=== PATIENT | male | born 1955 | race Caucasian/White ===

== ENCOUNTER 2022-03-19 13:23 | Emergency (ER) | payer SELFPAY ==
[2022-03-19] MEDS ORDERED: EPINEPHrine 1 MG/10 ML SYR IV ONE (13:24)
[2022-03-19] MEDS ORDERED: Caclcium Chloride 10% INJ SYR IV ONE (13:24)
[2022-03-19] MEDS ORDERED: ATROPINE SULF 1 MG/10 ML SYR IV ONE (13:24)
[2022-03-19] MEDS ORDERED: LIDOCAINE 100 MG/5 ML SYRINGE IV ONE (13:24)
[2022-03-19] MEDS ORDERED: SODIUM CHL 0.9% 1000 ML BAG IV ONE (13:24)
[2022-03-19] MEDS ORDERED: AMIODARONE HCL 150 MG/3 ML INJ IV ONE (13:24)
[2022-03-19] MEDS ORDERED: D5W 250 ML IV ONE (13:45)
[2022-03-19] MEDS ORDERED: EPINEPHRINE/PF 1 MG/ML AMP ONE (13:45)
[2022-03-19] MEDS ORDERED: NOREPINEPHRINE BITARTRATE/D5W 4 MG/250 ML BAG IV ONE (13:54)
[2022-03-19] MEDS ORDERED: EPINEPHrine 1 MG/10 ML SYR ONE (13:56)
[2022-03-19 14:21] LABS: Absolute Lymphocytes (CBC) 10.5 K/uL (0.7-4.9); Hematocrit 40.3 % (39.6-49.0); Lymphocytes % 70.2 % (15.3-44.8); MCV 88.9 fL (80-100); MPV 9.2 fL (7.6-11.3); Protime INR 1.15; RBC Red Blood Cell Count 4.53 M/uL (4.33-5.43)
--- NOTE | 2022-03-19 14:29 | EDPHYS ---
Physician Documentation [facility] Name: José Miguel Flores Age: 66 yrs Sex: Male : 1955 Arrival Date: 03/19/2022 Time: 13:25 Bed 3 Private MD: ED Physician Ortiz Rucker HPI: 03/19 14:20 This 66 yrs old white male Male presents to ER via EMS with complaints of cpr in ara progress. 14:20 Preceding the arrest, the patient collapsed, had chest pain. The arrest occurred at [facility]. Pre-hospital course: The arrest was witnessed by family. Bystanders at the scene did not perform CPR. EMS care prior to arrival: initiation of ACLS, peripheral IV, intubation oxygen, 100% by ET tube. 12 minutes elapsed prior to ACLS. The patient has not experienced similar symptoms in the past. - Family history:: not pertinent. ROS: 14:21 Unable to obtain ROS due to cpr in progress, cp and collapse pt ems arrival. ara 14:24 Skin: Positive for cyanosis. ara Exam: 14:21 Constitutional: The patient appears unresponsive , cpr in progress ara 14:21 Eyes: Pupils: are fixed and dilated, 4mm. 14:21 Cardiovascular: Rate: actual rate is 68 bpm, Pulses: not palpable, Heart sounds: no sounds, JVD: is noted bilaterally, to the angle of the jaw. 14:21 ECG was reviewed by the Attending Physician. 14:21 Respiratory: no spontaneous rythym. Vital Signs: 13:24 Pulse 102; Temp 98.4(R); Weight 74.84 kg; mb9 13:34 BP 164 / 86; Pulse 122; Resp 36; Pulse Ox 100% on ETT ambu; mb9 13:36 BP 134 / 113; Pulse 122; Resp 31; Pulse Ox 100% on ETT ambu; mb9 13:39 Pulse 125; mb9 13:44 Pulse 168; mb9 13:51 BP 82 / 66; Pulse 39; Resp 27; Pulse Ox 100% on ETT ambu; mb9 13:52 BP 68 / 29; Pulse 45; Resp 29; Pulse Ox 100% on ETT ambu; mb9 Procedures: 14:28 Central Line: the site was prepped with in sterile fashion, a triple lumen catheter was ara inserted, in the right in 1 attempts. placement was verified, by blood return, the site was dressed with using sterile technique, the patient tolerated the procedure, well. MDM: 14:07 Patient medically screened. ara 14:25 Data reviewed: vital signs, nurses notes, EMS record, EKG. [facility] 03/19 13:53 Order name: Basic Metabolic Panel em1 03/19 13:53 Order name: CBC with Diff em1 03/19 13:53 Order name: Troponin HS em1 03/19 13:53 Order name: PT-INR em1 03/19 13:53 Order name: EKG; Complete Time: 13:54 em1 03/19 13:53 Order name: Cardiac monitoring em1 03/19 13:53 Order name: EKG - Nurse/Tech em1 03/19 13:53 Order name: IV Saline Lock em1 03/19 13:53 Order name: Labs collected and sent em03/19 13:53 Order name: O2 Per Protocol em1 03/19 13:53 Order name: O2 Sat Monitoring em EC:21 Rate is 60 beats/min. Rhythm is irregularly irregular. QRS [place] is Normal. Clinical ara impression: Atrial Fibrillation. Interpreted by me. Reviewed by me. Administered Medications: 13:24 Drug: EPINEPHrine 0.1mg/mL 1:10,000 1 mg {Note: Administered via IO in right tibial .} mb9 Route: IVP; Site: Other; 13:24 Drug: Sodium Bicarbonate 1 amp {Note: Administered via IO in right tibial .} Route: mb9 IVP; Site: Other; 13:24 Drug: Calcium Chloride 1 grams {Note: Administered via IO in right tibial .} Route: mb9 IVP; Site: Other; 13:28 Drug: EPINEPHrine 0.1mg/mL 1:10,000 1 mg Route: IVP; Site: right antecubital; mb9 13:29 Drug: Sodium Bicarbonate 1 amp Route: IVP; Site: left antecubital; mb9 13:31 Drug: EPINEPHrine 0.1mg/mL 1:10,000 1 mg Route: IVP; Site: left antecubital; mb9 13:35 Drug: EPINEPHrine 0.1mg/mL 1:10,000 1 mg Route: IVP; Site: left antecubital; mb9 13:35 Drug: NS 0.9% 1000 ml Route: IV; Rate: 1 bolus; Site: right antecubital; mb9 13:39 Drug: EPINEPHrine 0.1mg/mL 1:10,000 1 mg Route: IVP; Site: right antecubital; mb9 13:39 Drug: amiodarone 150 mg Route: IVP; Site: left antecubital; mb9 13:41 Drug: Atropine 1 mg Route: IVP; Site: left antecubital; mb9 13:42 Drug: EPINEPHrine 0.1mg/mL 1:10,000 1 mg Route: IVP; Site: left antecubital; mb9 13:42 Drug: Calcium Chloride 1 grams Route: IVP; Site: left antecubital; mb9 13:49 Drug: EPINEPHrine (PF) 0.01 mcg/kg/min Route: IV; Rate: calculated rate; Site: right mb9 antecubital; 13:49 Drug: Lidocaine 100 mg Route: IVP; Site: left antecubital; mb9 13:51 Drug: NS 0.9% 1000 ml Route: IV; Rate: 1 bolus; Site: left antecubital; mb9 13:52 Drug: Atropine 0.5 mg Route: IVP; Site: left antecubital; mb9 13:54 Drug: EPINEPHrine 0.1mg/mL 1:10,000 1 mg Route: IVP; Site: left antecubital; mb9 13:55 Drug: Sodium Bicarbonate 0.5 amp Route: IVP; Site: left antecubital; mb9 13:57 Drug: EPINEPHrine 0.1mg/mL 1:10,000 1 mg Route: IVP; Site: left antecubital; mb9 13:57 Drug: Levophed (norepinephrine) 0.1 mcg/kg/min Route: IV; Rate: calculated rate; Site: mb9 left antecubital; Disposition: 14:25 Critical Care:. ara Disposition Summary: 03/19/22 14:28 Patient Location: [facility] ara Pronouncing Physician: Ortiz Rucker cha Time of : 14:03 03/19/2022 ara Diagnosis - Chest pain, unspecified ara - Cardiac arrest due to underlying cardiac condition - myocardial infarction ara - Respiratory arrest ara Critical care time excluding procedures: 14:25 Critical care time: Bedside Care: 30 minutes, Family Intervention: 15 minutes. Total ara time: 45 minutes Signatures: Dispatcher [employer] EDMS Ortiz Rucker MD MD cha Martinez, Eric em1 Jessica Freeman, RN RN mb9 Corrections: (The following items were deleted from the chart) 14: 13:54 EC Echo Doppler W/Color Flow+[email or web address].RAD.BRZ ordered. EDMS EDMS 14: 13:54 Chest Single View+RAD.RAD.[email or web address] ordered. EDMS EDMS
--- NOTE | 2022-03-19 14:29 | ER ---
Nurse's Notes [facility] Name: José Miguel Flores Age: 66 yrs Sex: Male : 1955 Arrival Date: 03/19/2022 Time: 13:25 Bed 3 Private MD: Diagnosis: Chest pain, unspecified;Cardiac arrest due to underlying cardiac condition-myocardial infarction;Respiratory arrest Presentation: 03/19 13:24 Chief complaint: EMS states: pt was doing yard work and became tired. Pt took aspirin mb9 and went to rest. Fiance found pt unresponsive and having seizure like movements. EMS states pt was blue in face on arrival and in VFib. CPR was started at 1250. Placed IO in right tibial. Defibrillated 3 times, administered 4 Epinephrine, 300 mg of amiodarone, and 150 mg of amiodarone. Pt in PEA for last 15 minutes. CPR in progress pt intubated by EMS prior to arrival. Size 8 ET tube and 24cm at the teeth. 13:24 Method Of Arrival: EMS: [facility] mb9 13:24 Acuity: DREW 1 mb9 - Family history:: not pertinent. Assessment: 13:24 CPR assessment: No central pulse palpated. Rhythm is PEA. CPR continued. mb9 13:26 CPR assessment: No central pulse palpated. Rhythm is PEA. CPR continued. mb9 13:28 CPR assessment: No central pulse palpated. Rhythm is PEA. CPR continued. mb9 13:30 CPR assessment: No central pulse palpated. Rhythm is PEA. CPR continued. mb9 13:32 CPR assessment: No central pulse palpated. Rhythm is PEA. CPR continued. mb9 13:34 CPR assessment: Central pulse palpated. Rhythm is tachycardia. mb9 13:36 CPR assessment: Central pulse palpated. Rhythm is tachycardia. mb9 13:37 CPR assessment: No central pulse palpated. Rhythm is VFib. Pt defibrillated at 200 J. mb9 CPR continued. 13:39 CPR assessment: Central pulse palpated. Rhythm is tachycardia. mb9 13:41 CPR assessment: Central pulses palpated. Rhythm is bradycardia. mb9 13:42 Reassessment: Central line insertion started by Dr. Rucker. mb9 13:43 CPR assessment: No central pulse palpated. Rhythm is PEA. CPR continued. mb9 13:44 CPR assessment: Central pulse palpated. Rhythm is tachycardia. mb9 13:46 CPR assessment: Central pulses palpated. Rhythm is tachycardia. mb9 13:48 CPR assessment: Rhythm is VFib. Pt defibrillated at 200 J. Central pulse palpated post mustapha defibrillation by Dr. Rucker. CPR paused at this time. 13:50 CPR assessment: Central pulse palpated. Rhythm is bradycardia. mb9 13:50 Reassessment: POA at bedside. Francoise Early. mb9 13:52 CPR assessment: Central pulse palpated. Rhythm is bradycardia. mb9 13:54 CPR assessment: No central pulse palpated. Rhythm is PEA. CPR continued. mb9 13:54 Reassessment: Central line insertion completed by Dr. Rucker. mb9 13:56 CPR assessment: No central pulse palpated. Rhythm is PEA. CPR continued. mb9 13:58 CPR assessment: No central pulse palpated. Rhythm is PEA. CPR continued. mb9 14:00 CPR assessment: No central pulse palpated. Rhythm is PEA. CPR continued. mb9 14:02 CPR assessment: No central pulse palpated. Rhythm is PEA. VO to pause CPR from Dr. mustapha Rucker. 14:03 CPR assessment: No central pulses palpated. Time of pronounced by Dr. Rucker. aa5 14:50 Reassessment: [employer] contacted. [employer] call or contact centre manager is Lidia Linares. mb9 Vital Signs: 13:24 Pulse 102; Temp 98.4(R); Weight 74.84 kg; mb9 13:34 BP 164 / 86; Pulse 122; Resp 36; Pulse Ox 100% on ETT ambu; mb9 13:36 BP 134 / 113; Pulse 122; Resp 31; Pulse Ox 100% on ETT ambu; mb9 13:39 Pulse 125; mb9 13:44 Pulse 168; mb9 13:51 BP 82 / 66; Pulse 39; Resp 27; Pulse Ox 100% on ETT ambu; mb9 13:52 BP 68 / 29; Pulse 45; Resp 29; Pulse Ox 100% on ETT ambu; mb9 ED Course: 13:24 Patient arrived in ED. bp 13:24 Patient has correct armband on for positive identification. mb9 13:27 Inserted saline lock: 20 gauge in right antecubital area, using aseptic technique. mb9 13:28 Inserted saline lock: 20 gauge in left antecubital area, using aseptic technique. mb9 13:39 EKG done, by ED staff, reviewed by Ortiz Rucker MD. mb9 13:40 EKG done, by ED staff, reviewed by Ortiz Rucker MD. mb9 13:42 Assisted provider with central line placement. Set up central line tray. Triple lumen mb9 line placed in right femoral. Line placed by Ortiz Rucker MD. 13:46 EKG done, by ED staff, reviewed by Ortiz Rucker MD. mb9 14:05 Jessica Freeman RN is Primary Nurse. mb9 14:07 Ortiz Rucker MD is Attending Physician. [facility] 14:14 Triage completed. mb9 14:26 Ortiz Rucker MD is Pronouncing Provider. ara Administered Medications: 13:24 Drug: EPINEPHrine 0.1mg/mL 1:10,000 1 mg {Note: Administered via IO in right tibial .} mb9 Route: IVP; Site: Other; 13:24 Drug: Sodium Bicarbonate 1 amp {Note: Administered via IO in right tibial .} Route: mb9 IVP; Site: Other; 13:24 Drug: Calcium Chloride 1 grams {Note: Administered via IO in right tibial .} Route: mb9 IVP; Site: Other; 13:28 Drug: EPINEPHrine 0.1mg/mL 1:10,000 1 mg Route: IVP; Site: right antecubital; mb9 13:29 Drug: Sodium Bicarbonate 1 amp Route: IVP; Site: left antecubital; mb9 13:31 Drug: EPINEPHrine 0.1mg/mL 1:10,000 1 mg Route: IVP; Site: left antecubital; mb9 13:35 Drug: EPINEPHrine 0.1mg/mL 1:10,000 1 mg Route: IVP; Site: left antecubital; mb9 13:35 Drug: NS 0.9% 1000 ml Route: IV; Rate: 1 bolus; Site: right antecubital; mb9 13:39 Drug: EPINEPHrine 0.1mg/mL 1:10,000 1 mg Route: IVP; Site: right antecubital; mb9 13:39 Drug: amiodarone 150 mg Route: IVP; Site: left antecubital; mb9 13:41 Drug: Atropine 1 mg Route: IVP; Site: left antecubital; mb9 13:42 Drug: EPINEPHrine 0.1mg/mL 1:10,000 1 mg Route: IVP; Site: left antecubital; mb9 13:42 Drug: Calcium Chloride 1 grams Route: IVP; Site: left antecubital; mb9 13:49 Drug: EPINEPHrine (PF) 0.01 mcg/kg/min Route: IV; Rate: calculated rate; Site: right mb9 antecubital; 13:49 Drug: Lidocaine 100 mg Route: IVP; Site: left antecubital; mb9 13:51 Drug: NS 0.9% 1000 ml Route: IV; Rate: 1 bolus; Site: left antecubital; mb9 13:52 Drug: Atropine 0.5 mg Route: IVP; Site: left antecubital; mb9 13:54 Drug: EPINEPHrine 0.1mg/mL 1:10,000 1 mg Route: IVP; Site: left antecubital; mb9 13:55 Drug: Sodium Bicarbonate 0.5 amp Route: IVP; Site: left antecubital; mb9 13:57 Drug: EPINEPHrine 0.1mg/mL 1:10,000 1 mg Route: IVP; Site: left antecubital; mb9 13:57 Drug: Levophed (norepinephrine) 0.1 mcg/kg/min Route: IV; Rate: calculated rate; Site: mb9 left antecubital; Outcome: 16:20 Patient : Time of 14:03 Pronounced by Ortiz Rucker MD Body released to [facility] 16:20 Condition: 16:25 Patient left the ED. aa5 Signatures: Ortiz Rucker MD MD cha Martinez, Eric em1 Corrine Kraus RN RN aa5 Ignacio Mistry RN RN bp Breneman, Mary Beth, RN RN mb9 Corrections: (The following items were deleted from the chart) 14:23 13:24 Chief complaint: EMS states: pt was doing yard work and became tired. Pt took mb9 aspirin and went to rest. Fiance found pt unresponsive and having seizure like movements. EMS states pt was blue in face on arrival and in VFib. CPR was started at 1250. Placed IO in right tibial. Defibrillated 3 times, administered 4 Epinephrine, 300 mg of amiodarone, and 150 mg of amiodarone. Pt in PEA for last 15 minutes. CPR in progress mb9 14:27 13:25 Patient arrived in ED. em1 bp 15:30 15:25 Reassessment: [facility] 15:54 13:48 CPR assessment: Rhythm is VFib. Pt defibrillated at 200 J. Central pulse palpated 9 mb9 15:55 13:48 CPR assessment: Rhythm is VFib. Pt defibrillated at 200 J. Central pulse palpated [facility] 15:56 15:53 Reassessment: POA at bedside 9 9 16:02 14:03 CPR assessment: No central pulses palpated. Time of pronounced by Dr. brayden Rucker mb9
[2022-03-19 14:37] LABS: Troponin High Sensitivity 459.5 pg/mL (<58.9)
[2022-03-19 14:39] LABS: Potassium 3.8 mmol/L (3.5-5.1)
[2022-03-19 17:07] VITALS: TEMP 98.4
[2022-03-19 17:08] VITALS: O2SAT 100
[2022-03-19 17:13] VITALS: BP 68/29
== END 2022-03-19 16:25 ==
LOC: ER 13:23
PROC: 05HP33Z Insertion of Infusion Device into Right External Jugular Vein, Percutaneous Approach (ICD-10-PCS; principal; 2022-03-19)
DX: I21.9 Acute myocardial infarction, unspecified (principal); I46.2 Cardiac arrest due to underlying cardiac condition
CPT/HCPCS: 36415; 80048; 84484; 85025; 85610; 92950; 93005; 99291; J0171; J0282; J7030; J7060